=== PATIENT | male | born 1975 ===

== ENCOUNTER 2022-12-04 06:22 | Day surgery (SDC) | payer OTHER ==
[~2022-12-04] VITALS: Ht 180.3 cm; Wt 57.6 kg
[~2022-12-04 06:22] MED LIST: ATORVASTATIN CA10 MG PO; MOTRIN400 MG/TAB PO; OMEPRAZOLE10 MG PO; PAIN RELIEF325 MG PO; VITAMIN D325 MCG
[2022-12-04] MEDS ORDERED: TORADOL PO (09:21)
[2022-12-04 11:28] VITALS: BP 138/85
== END 2022-12-04 11:18 | disposition designated cancer center or children's hospital (05) | DRG 351 ==
LOC: ORM 06:22
PROVIDERS: ATTEND Surgery
PROC: 0YU50JZ Supplement Right Inguinal Region with Synthetic Substitute, Open Approach (ICD-10-PCS; principal; 2022-12-04)
DX: K40.90 Unilateral inguinal hernia, without obstruction or gangrene, not specified as recurrent (principal); C85.90 Non-Hodgkin lymphoma, unspecified, unspecified site
CPT/HCPCS: C9290; J0131; J0690; J1100